=== PATIENT | male | born 1995 | race Caucasian/White ===

== ENCOUNTER 2016-08-22 16:32 | Emergency (ER) | payer OTHER ==
--- NOTE | 2016-08-22 17:34 | EDPHY ---
H & P Stated Complaint: FELL BACKWARDS, HIT HEAD 3 DAYS [employer]OB [employer], C/O OF MARTINEZ,NAUSEA HPI/ROS: CHIEF COMPLAINT: Headache, fall HISTORY OF PRESENT ILLNESS: patient says he was drinking heavily Thursday night when he slipped, falling backward on a flight stairs. He notes a brief loss of consciousness but is not entirely sure is he is amnestic to the immediate details after the fall. Since that time he has had headache, left arm and forearm pain. The headache was mild to moderate graded as moderate to severe. Associated with some nausea, confusion, repetitive questioning at times. He has neck pain but no stiffness. He has no fever or chills. He has no diplopia or blurred vision. No unilateral weakness or sensory changes. His friends at bedside said he just "seems kind of out of it." he has no lethargy. No increased of his sleeping habits for the past 2 days. He was seen on campus at [facility] today and they sent him here for higher level of care due to the nature of his injury. He has no chest pain or shortness of breath. No abdominal pain. No bony tenderness of any extremity. No pain at the back at any location. No lacerations. No other associated complaints or modifying factors. REVIEW OF SYSTEMS: Ten systems reviewed and are negative unless otherwise noted in the HPI EXAMINATION General Appearance: Alert, no distress Head: normocephalic, atraumatic . No Feldman sign. No raccoon eyes. No outward signs of trauma. Tender to palpation on the occiput. No hematoma. Eyes: Pupils equal and round, no conjunctival pallor or injection . EOMs intact. ENT, Mouth: Mucous membranes moist . Uvula midline. No erythema or edema. No hemotympanum Neck: Normal inspection, supple, no midline tenderness. Tenderness of bilateral trapezius muscles. Range of motion is intact in all planes. Respiratory: Lungs are clear to auscultation . No wheezing, rhonchi or crackles. Cardiovascular: Regular rate and rhythm . No murmur. Pulses intact distally with symmetric radial, DP and PT pulses at 2+ Gastrointestinal: Abdomen is soft and nontender. No tympany or rigidity. Back: Nontender. Superficial abrasions on the soft tissue in the thoracic lumbar region. There is no midline tenderness at any level of the back. No crepitus or deformity. Neurological: A&O X4. Cranial nerves 2-12 grossly intact. Strength symmetric in all limbs at 5/5. Sensory intact. No pronator drift. Normal mental status. Skin: Warm and dry, no rash . Superficial abrasions to the back. ecchymosis to the left arm Extremities: mild tenderness to palpation of the left brachium posterior soft tissue. There is no bony tenderness at any point of any extremity. Range of motion is intact in all limbs without pain. Psychiatric: Mood and affect normal DIFFERENTIAL DIAGNOSES: Including but not limited to closed head injury, concussion, postconcussion syndrome, nausea, subarachnoid, subdural, epidural MDM: 5:30 p.m. patient is nearly 48 hours post fall down 1 flight of stairs. He did have a loss of consciousness. He does have a severe headache and some nausea. No vomiting. Given his fall greater than 3 feet, nausea and brief loss of consciousness I will obtain a CT scan of the head. He has neuro exam was within normal limits without any deficits. He is awake and alert and conversing appropriately. Does have some mild bruising elsewhere but no bony tenderness elsewhere.e. 6:10 p.m. notified by radiologist that there are no acute findings on the CT scan of the head. I have re-evaluated the patient he remains neuro intact. He will be discharged home with symptomatic medications, concussion booklet, instructions to follow up with our concussion specialist Dr. Rooney. Additionally he is instructed to follow up with primary care physician or the health clinic on campus should his symptoms worsen. We also discussed return to the emergency department cautions for worsening headache, dizziness, syncope, vomiting, unilateral weakness that would prompt an MRI. He is comfortable with this plan and discharged home in stable condition and ambulatory without assistance. Head CT ordered in this adult patient for trauma the following indication: severe headache, LOC and headache, fall greater than 3 feet. SUPERVISION:This patient was independently evaluated without the aide of supervising physician. Source: Patient Exam Limitations: No limitations - Personal History Current Tetanus Diphtheria and Acellular Pertussis (TDAP): Yes - Medical/Surgical History Other PMH: VIRAL HEP - Social History Smoking Status: Current some day smoker Constitutional: Initial Vital Signs Temperature (C) 98.2 F 08/22/16 16:41 Heart Rate 74 08/22/16 16:41 Respiratory Rate 16 08/22/16 16:41 Blood Pressure 148/93 H 08/22/16 16:41 O2 Sat (%) 97 08/22/16 16:41 O2 Delivery Mode Room Air Allergies/Adverse Reactions: No Known Allergies Allergy (Unverified 08/22/16 16:40) Home Medications: Medication Instructions Recorded Codeine/Butalbit/Acetamin/Caff 1 each PO Q6 PRN #12 capsule 08/22/16 [Fioricet-Cod [id number] Cap] Ondansetron Odt [Zofran Odt 4 mg 4 mg PO Q6 PRN #12 tab 08/22/16 (*)] Departure - Departure Disposition: Home, Routine, Self-Care Clinical Impression: Concussion, Fall (on) (from) other stairs and steps, initial encounter Condition: Good Instructions: Concussion (ED), Post Concussion Syndrome (ED) Additional Instructions: Follow up with concussion specialist as listed. Return to the ER for worsening headache, dizziness, syncope, vomiting, fever, confusion, unilateral changes. Referrals: NONE *PRIMARY CARE P,. [Unknown] - As per Instructions Jenny Rooney MD [Medical Doctor] - As per Instructions Stand Alone Forms: Work Excuse Prescriptions: Codeine/Butalbit/Acetamin/Caff [Fioricet-Cod [id number] Cap] 1 each PO Q6 PRN #12 capsule PRN Reason: Headache Ondansetron Odt [Zofran Odt 4 mg (*)] 4 mg PO Q6 PRN #12 tab PRN Reason: Nausea/Vomiting, Use 1st
[2016-08-22 18:35] VITALS: BP 133/79; PULSE 70; RESP 14; TEMP 97.5; O2SAT 94
== END 2016-08-22 18:36 | disposition home or self-care (01) ==
DX: S06.0X0A Concussion without loss of consciousness, initial encounter (principal); F17.200 Nicotine dependence, unspecified, uncomplicated; W10.8XXA Fall (on) (from) other stairs and steps, initial encounter; Y92.89 Other specified places as the place of occurrence of the external cause